=== PATIENT | female | born 1995 | race Caucasian/White ===

== ENCOUNTER 2018-03-31 12:02 | Emergency (ER) | payer BC ==
[2018-03-31 12:02] VITALS: BMI 21.7
[2018-03-31 12:11] VITALS: BP 118/73; PULSE 88; RESP 18; TEMP 97.7; O2SAT 99
[2018-03-31] MEDS ORDERED: Sodium Chloride 0.9% 1,000 ML IV STA (12:25)
[2018-03-31 12:54] LABS: BASO # 0.1 K/uL (0.0-0.2); EOS # 0.6 K/uL (0.0-0.7); EOS % 9.7 % (0.0-4.0); HEMOGLOBIN 13.2 g/dL (12.0-16.0); LYMPH % 35.9 % (20.0-40.0); MEAN CELL VOLUME 93.2 fl (81.0-99.0); MEAN CORPUSCULAR HEMOGLOBIN 30.6 pg (27.0-31.0); MEAN CORPUSCULAR HGB CONC 32.8 g/dL (33.0-37.0); MONO # 0.5 K/uL (0.0-0.8); MONO % 9.1 % (0.0-10.0); NEUT # 2.5 K/uL (1.8-7.0); NEUT % 44.3 % (50.0-75.0); NRBC % 0.3 % (0.0-0.0); RBC 4.32 Mil/uL (3.80-5.20); RED CELL DISTRIBUTION WIDTH 12.8 % (11.5-14.5); WHITE BLOOD COUNT 5.7 K/uL (4.8-10.8)
[2018-03-31 13:01] LABS: ALB/GLOB RATIO 1.2 (1.0-2.1); ALBUMIN 4.5 g/dL (3.5-5.0); BLOOD UREA NITROGEN 8 mg/dl (7-17); CALCIUM 8.9 mg/dL (8.4-10.2); GFR NON-AFRICAN AMERICAN > 60
[2018-03-31 13:04] LABS: ALT/SGPT 26 U/L (9-52); AST/SGOT 34 U/L (14-36)
--- NOTE | 2018-03-31 13:08 | ED PDOC ---
HPI: Abdomen Time Seen by Provider: 03/31/18 12:14 Chief Complaint (Nursing): Abdominal Pain Chief Complaint (Provider): abdominal pain History Per: Patient History/Exam Limitations: no limitations Onset/Duration Of Symptoms: Days (x2) Current Symptoms Are (Timing): Still Present Location Of Pain/Discomfort: LLQ Associated Symptoms: denies: Nausea, Vomiting, Diarrhea Additional Complaint(s): Nimo Olsen is a 22 year old female, with a past medical history of ovarian cysts, who presents to the emergency department complaining of left lower quadrant abdominal pain onset for x2 days. Patient denies any nausea, vomiting, diarrhea or dysuria. No further medical complaints. PMD: Kirk Frost Past Medical History Reviewed: Historical Data, Nursing Documentation, Vital Signs Vital Signs: Last Vital Signs Temp 97.7 F 03/31/18 12:10 Pulse 88 03/31/18 12:10 Resp 18 03/31/18 12:10 BP 118/73 03/31/18 12:10 Pulse Ox 99 03/31/18 12:10 - Medical History PMH: Asthma Other PMH: ovarian cysts - Surgical History Surgical History: No Surg Hx - Family History Family History: States: Unknown Family Hx - Immunization History Hx Tetanus Toxoid Vaccination: Yes - Home Medications Home Medications: Ambulatory Orders Medication Instructions Recorded Albuterol 0.083% [Albuterol 3 ml IH 02/14/15 Sulfate 3 Ml] Albuterol HFA [Ventolin HFA 90 1 puff INH PRN 02/14/15 mcg/actuation (8 g)] Albuterol HFA [Ventolin HFA 90 2 puff IH Q4H #1 puff 02/14/15 mcg/actuation (8 g)] Azithromycin [Zithromax] 250 mg PO DAILY #6 cap 02/14/15 Fluticasone/Salmeterol 250/50 1 puff INH DAILY 02/14/15 [Advair Diskus 250/50] Albuterol HFA [Ventolin HFA 90 2 puff IH Q4H #1 puff 11/30/15 mcg/actuation (8 g)] Sulfamethoxazole/Trimethoprim 1 tab PO BID #20 tab 11/30/15 [Bactrim DS 800 mg-160 mg] Sulfamethoxazole/Trimethoprim 1 tab PO BID 5 Days tab 03/29/16 [Bactrim DS 800 mg-160 mg] Naproxen [Naprosyn] 500 mg PO BID #20 tab 06/07/16 Naproxen [Naprosyn] 500 mg PO Q12H #20 tab 03/31/18 - Allergies Allergies/Adverse Reactions: Allergies Allergy/AdvReac Type Severity Reaction Status Date / Time corn Allergy ANAPHYLAXIS Verified 11/30/15 17:55 Review of Systems ROS Statement: Except As Marked, All Systems Reviewed And Found Negative Gastrointestinal: Positive for: Abdominal Pain. Negative for: Nausea, Vomiting, Diarrhea Genitourinary Female: Negative for: Dysuria Physical Exam - Reviewed Nursing Documentation Reviewed: Yes Vital Signs Reviewed: Yes - Physical Exam Appears: Positive for: No Acute Distress Head Exam: Positive for: ATRAUMATIC, NORMAL INSPECTION, NORMOCEPHALIC Skin: Positive for: Normal Color, Warm, Dry Eye Exam: Positive for: Normal appearance, EOMI, PERRL Neck: Positive for: Normal, Painless ROM Cardiovascular/Chest: Positive for: Regular Rate, Rhythm. Negative for: Murmur Respiratory: Positive for: Normal Breath Sounds. Negative for: Respiratory Distress Gastrointestinal/Abdominal: Positive for: Tenderness (LLQ). Negative for: Guarding, Rebound Back: Positive for: Normal Inspection. Negative for: L CVA Tenderness, R CVA Tenderness, Vertebral Tenderness Extremity: Positive for: Normal ROM (upper and lower extremities). Negative for: Deformity, Swelling Neurologic/Psych: Positive for: Alert, Oriented. Negative for: Motor/Sensory Deficits - Laboratory Results Result Diagrams: 03/31/18 12:35 03/31/18 12:35 - ECG O2 Sat by Pulse Oximetry: 99 (RA) Pulse Ox Interpretation: Normal - Progress Re-evaluation Time: 15:31 Condition: Improved Medical Decision Making Medical Decision Making: Time: 12:14 Initial Plan: --CMP --Urine --Urine dipstick --CBC w/ differential --Sodium Chloride 1,000 ml IV 100 mls/hr --Toradol 30 mg IVP --Urine culture --Pelvic Non OB B Scan Limited [US] --Reevaluation 14:26 Pelvis Ultrasound FINDINGS: UTERUS: Measures 5.9 x 2.8 x 3.5 cm. Is retroverted normal in size and appearance. No fibroid or other mass lesion seen. ENDOMETRIUM: Measures 4.0 mm in diameter. Unremarkable. CERVIX: No cervical abnormality identified. RIGHT OVARY: Measures 2.7 x 1.8 x 2.3 cm. No solid mass. Normal flow. LEFT OVARY: Left ovary not visualized. FREE FLUID: No significant free fluid noted. OTHER FINDINGS: None. IMPRESSION: Left ovary not visualized.. The study is otherwise unremarkable 14:54 Transvaginal Ultrasound FINDINGS: UTERUS: Measures 6.4 x 2.8 x 4.1 cm. Anteverted. Normal in size and appearance. No fibroid or other mass lesion seen. ENDOMETRIUM: Measures 9.0 mm in diameter. Unremarkable. CERVIX: No cervical abnormality identified. RIGHT OVARY: Measures 4.3 x 2.8 x 2.7 cm. No solid mass. Normal flow. LEFT OVARY: Measures 2.6 x 1.4 x 2.2 cm. No solid mass. Normal flow. FREE FLUID: No significant free fluid noted. OTHER FINDINGS: None. IMPRESSION: Unremarkable pelvic ultrasound. Scribe Attestation: Documented by López Henriquez, acting as a scribe for Simeon Johnson MD. Provider Scribe Attestation: All medical record entries made by the Scribe were at my direction and personally dictated by me. I have reviewed the chart and agree that the record accurately reflects my personal performance of the history, physical exam, medical decision making, and the department course for this patient. I have also personally directed, reviewed, and agree with the discharge instructions and disposition. Disposition - Clinical Impression Clinical Impression: Ovarian cyst - Patient ED Disposition Is Patient to be Admitted: No - Disposition Referrals: Kirk Frost MD [Primary Care Provider] - Disposition: Routine/Home Disposition Time: 15:31 Condition: FAIR Prescriptions: Naproxen [Naprosyn] 500 mg PO Q12H #20 tab Instructions: Ovarian Cysts Forms: [employer] ([place])
--- NOTE | 2018-03-31 14:30 | US ---
Date of service: 03/31/2018 HISTORY: Left ovarian cyst COMPARISON: Comparison made with prior pelvic ultrasound dated 06/07/2016. TECHNIQUE: Transabdominal sonographic evaluation of pelvis performed FINDINGS: UTERUS: Measures 5.9 x 2.8 x 3.5 cm. Is retroverted normal in size and appearance. No fibroid or other mass lesion seen. ENDOMETRIUM: Measures 4.0 mm in diameter. Unremarkable. CERVIX: No cervical abnormality identified. RIGHT OVARY: Measures 2.7 x 1.8 x 2.3 cm. No solid mass. Normal flow. LEFT OVARY: Left ovary not visualized. FREE FLUID: No significant free fluid noted. OTHER FINDINGS: None. IMPRESSION: Left ovary not visualized.. The study is otherwise unremarkable
--- NOTE | 2018-03-31 14:58 | US ---
Date of service: 03/31/2018 HISTORY: Ovarian cyst COMPARISON: None available. TECHNIQUE: Transvaginal sonographic evaluation of the pelvis performed. Correlation made with the earlier transabdominal pelvic ultrasound same day. FINDINGS: UTERUS: Measures 6.4 x 2.8 x 4.1 cm. Anteverted. Normal in size and appearance. No fibroid or other mass lesion seen. ENDOMETRIUM: Measures 9.0 mm in diameter. Unremarkable. CERVIX: No cervical abnormality identified. RIGHT OVARY: Measures 4.3 x 2.8 x 2.7 cm. No solid mass. Normal flow. LEFT OVARY: Measures 2.6 x 1.4 x 2.2 cm. No solid mass. Normal flow. FREE FLUID: No significant free fluid noted. OTHER FINDINGS: None. IMPRESSION: Unremarkable pelvic ultrasound.
== END 2018-03-31 15:52 | disposition home or self-care (01) ==
LOC: H.ER 12:02 → SUPCPDRO 12:02 → H.ER 15:52
DX: N83.202 Unspecified ovarian cyst, left side (principal)
CPT/HCPCS: 76830; 76857; 80053; 81025; 85025; 87086; 96374; 99285; J1885; J7030